=== PATIENT | male | born 1950 | race Caucasian/White ===

== ENCOUNTER → 2021-09-13 15:19 | Outpatient (BNVA) | payer MEDICARE, SELFPAY | PROVIDERS: Family Provider Family Medicine; PCP Family Medicine; Visit Provider Family Medicine | DX: Z00.00 Encounter for general adult medical examination without abnormal findings (principal); Z51.81 Encounter for therapeutic drug level monitoring; Z13.220 Encounter for screening for lipoid disorders; E53.9 Vitamin B deficiency, unspecified; R73.01 Impaired fasting glucose; R39.11 Hesitancy of micturition | CPT/HCPCS: 80053; 80061; 82607; 83036; 84153; 85025 ==

== ENCOUNTER 2021-10-09 08:42 | Day surgery (SDC) | payer MEDICARE, SELFPAY ==
[2021-10-05 12:39] VITALS: BMI 29.1
[2021-10-09 09:17] VITALS: BP 123/77; PULSE 72; RESP 18; TEMP 36.5; O2SAT 95
[2021-10-09] MEDS: sodium chloride 0.9% 1,000 ML 30 ML IV (09:29)
--- NOTE | 2021-10-09 09:46 | P.HP_ITS ---
Same Day Surgery H&P Indication for Procedure/HPI DATE OF PROCEDURE: October 09, 2021 CHIEF COMPLAINT/INDICATIONFOR SURGICAL PROCEDURE: History of colon polyp PREOP DIAGNOSIS: Polyps PLANNED PROCEDURE: Operation Date: 10/09/21 10:15 Proposed Procedures p Colonoscopy 57740,z86.010(Not Applicable) - Bon Pedersen MD Medications/Allergies* Home Medications Medication Instructions Recorded Confirmed Type Lactobacills gasseri-Bifidobac 1 cap PO DAILY 09/28/21 10/05/21 History bifidum,longum 1.5 billion cell capsule ([place] [employer]) ascorbic acid (vitamin C) 500 mg 500 mg PO DAILY 09/28/21 10/05/21 History capsule cholecalciferol (vitamin D3) 125 125 mcg PO DAILY 09/28/21 10/05/21 History mcg (5,000 unit) capsule methylcellulose (laxative) 500 mg 500 mg PO DAILY 09/28/21 10/05/21 History tablet (Fiber Laxative (methylcellulose)) Allergies/Adverse Reactions Allergy/AdvReac Type Severity Reaction Status Date / Time No Known Allergies Allergy Verified 10/09/21 09:25 Current Medications: Generic Name Dose Route Start Last Admin Trade Name Freq PRN Reason Stop Dose Admin Sodium Chloride 1,000 mls @ 30 mls/hr 10/09/21 09:30 10/09/21 09:29 Sodium Chloride 0.9% IV 30 mls/hr .Q24H AUBRIE Administration Pertinent History/Comorbid Conditions* Social History Smoking and tobacco status: never smoked Alcohol intake: never Pertinent Exam Findings alert, oriented x 3, clear to auscultation bilaterally, regular rate & rhythm, operative site marked and procedure specific exam findings Recommendations Surgery/Procedure today Coding Level of Care Code Acute Technical Services Rep for Gilberto Solano
--- NOTE | 2021-10-09 09:56 | P.ANESASSM_ITS ---
Pre-Anesthetic Assessment Height/Weight: Height 1.83 m Weight 97.522 kg Temp Pulse Resp BP Pulse Ox 97.7 F 72 18 123/77 95 10/09/21 09:17 10/09/21 09:17 10/09/21 09:17 10/09/21 09:17 10/09/21 09:17 Preop Diagnosis: Polyps Operation Date: 10/09/21 10:15 Proposed Procedures p Colonoscopy 69275,z86.010(Not Applicable) - Bon Pedersen MD Familial anesthetic complications: None Was Beta Margi taken within 24 hours: N/A Was Clonidine taken within 24 hours: N/A Last intake: Intake Last Liquid Date 10/08/21 Last Liquid Time 23:45 Last Solid Date 10/07/21 Social No alcohol and No tobacco Exam alert, oriented x 3, clear to auscultation bilaterally and regular rate & rhythm Airway Mallampati: Class II Dentition: full Metabolic Pre-DM Anesthetic Plan ASA status: 2 Anesthesia: MAC Risk of > 500 ml blood loss (7ml/kg in children): No Medications/Allergies Home Medications Medication Instructions Recorded Confirmed Last Taken Type Lactobacills gasseri-Bifidobac 1 cap PO DAILY 09/28/21 10/05/21 10/07/21 History bifidum,longum 1.5 billion cell capsule ([employer] DTS) ascorbic acid (vitamin C) 500 mg 500 mg PO DAILY 09/28/21 10/05/21 10/07/21 History capsule cholecalciferol (vitamin D3) 125 125 mcg PO DAILY 09/28/21 10/05/21 10/07/21 History mcg (5,000 unit) capsule methylcellulose (laxative) 500 mg 500 mg PO DAILY 09/28/21 10/05/21 10/07/21 History tablet (Fiber Laxative (methylcellulose)) Allergies Allergy/AdvReac Type Severity Reaction Status Date / Time No Known Allergies Allergy Verified 10/09/21 09:25 Current Medications Generic Name Dose Route Start Last Admin Trade Name Freq PRN Reason Stop Dose Admin Sodium Chloride 1,000 mls @ 30 mls/hr 10/09/21 09:30 10/09/21 09:29 Sodium Chloride 0.9% IV 30 mls/hr .Q24H AUBRIE Administration PFSH Anesthesia Social History (Updated 09/12/21 @ 16:02 by Bakari Keysha) Smoking and tobacco status: never smoked Alcohol intake: never Data Anesthesia Cardiac Studies: No Data to Display
[2021-10-09] MEDS: EPINEPHrine 1 mg/mL INJ XX (11:20)
--- NOTE | 2021-10-09 11:28 | ANE.PACU2 ---
Inpatient post-anesthesia follow up: Airway intact: Yes Vital signs: Temperature 97.7 F Pulse Rate 72 Respiratory Rate 18 Blood Pressure 123/77 Pulse Oximetry 95 Oxygen Delivery Me thod Room Air Oxygen Flow Rate Fraction of Inspir ed Oxygen Hydration adequate: Yes Nausea and vomiting: No Pain level: 1 Mental status: Baseline
[2021-10-09 11:31] VITALS: BP 129/79; PULSE 63; RESP 19; TEMP 36.3; O2SAT 97
[2021-10-09] MEDS: ondansetron 2 mg/ML SDV 2 mL 4 MG IVP (11:44)
[2021-10-09 11:47] VITALS: BP 138/94; PULSE 68; RESP 16; O2SAT 94
== END 2021-10-09 12:09 | disposition home or self-care (01) ==
PROVIDERS: Family Provider Family Medicine; PCP Family Medicine; Visit Provider Internal Medicine
PROC: 0DJD8ZZ Inspection of Lower Intestinal Tract, Via Natural or Artificial Opening Endoscopic (ICD-10-PCS; CPT 45378; principal; 2021-10-09 10:15)
DX: Z86.010 Personal history of colon polyps (principal); D12.3 Benign neoplasm of transverse colon; R73.03 Prediabetes
CPT/HCPCS: 45381; 45385; 88305; J0171; J2405; J2704; J7030

== ENCOUNTER → 2022-01-29 08:17 | Outpatient (BNVA) | payer MEDICARE, SELFPAY | PROVIDERS: Family Provider Family Medicine; PCP Family Medicine; Visit Provider Family Medicine | DX: Z51.81 Encounter for therapeutic drug level monitoring (principal); E11.9 Type 2 diabetes mellitus without complications; E53.8 Deficiency of other specified B group vitamins | CPT/HCPCS: 80053; 80061; 82607; 83036; 85025 ==

== ENCOUNTER 2022-02-22 09:22 | Emergency (ER) | payer MEDICARE, SELFPAY ==
[2022-02-22] VITALS (18 sets, daily range): BP systolic 108–145; BP diastolic 69–92; PULSE 77–87; RESP 14–26; TEMP 36.8; O2SAT 89–95; BMI 29.1
--- NOTE | 2022-02-22 09:39 | ECG_ITS ---
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 Measurements Intervals [place] Rate: 81 P: 51 CO: 170 QRS: 51 QRSD: 99 T: 62 QT: 377 QTc: 439 Interpretive Statements SINUS RHYTHM No previous ECG available for comparison Electronically Signed On 02-22-2022 19:00:56 AUDIT SENIOR ASSOCIATE by Angelina Figueroa M.D. [id number] f
--- NOTE | 2022-02-22 10:02 | XRR_ITS ---
PROCEDURE INFORMATION: Exam: XR Chest Exam date and time: 02/22/2022 10:24 AM Age: 71 years old Clinical indication: Pain; Angina pectoris; Additional info: Chest pain TECHNIQUE: Imaging protocol: Radiologic exam of the chest. Views: 1 view. COMPARISON: No relevant prior studies available. FINDINGS: Lungs: Unremarkable. No consolidation. Pleural spaces: Unremarkable. No pleural effusion. No pneumothorax. Heart/Mediastinum: Unremarkable. No cardiomegaly. Bones/joints: Unremarkable. XR/XR chest 1V portable [id number] IMPRESSION: No acute findings.
[2022-02-22] MEDS: aspirin 81 mg Chew Tablet 324 MG PO (10:14)
--- NOTE | 2022-02-22 10:23 | PC.NURSE ---
PT IS ON CONTINUOUS SPO2, NIBP, AND CM.
[2022-02-22 10:34] LABS: Basophils % 0.5 %; Eosinophils # 0.1 10^3/uL (0.0-0.8); Eosinophils % 1.3 %; Hematocrit 43.4 % (42.0-52.0); Hemoglobin 14.8 g/dL (11.7-16.6); Lymphocytes # 1.2 10^3/uL (0.8-4.8); Lymphocytes % 13.8 %; Mean Corpuscular HGB Conc 34.1 g/dL (30.0-36.0); Mean Corpuscular Hemoglobin 31.4 pg (28.0-34.0); Mean Corpuscular Volume 92.1 fl (80-94); Mean Platelet Volume 9.9 fL (7.4-10.4); Monocytes # 0.8 10^3/uL (0.2-0.9); Neutrophils # 6.53 10^3/uL (1.8-7.7); Neutrophils % 75.1 %; Nucleated Red Blood Cells % 0 %; Platelet Count 169 10^3/cmm (130-400); Red Blood Count 4.71 10^6/uL (4.1-5.3); Red Cell Distribution Width 12.8 % (12.1-15.1); White Blood Count 8.7 10^3/uL (4.0-10.0)
--- NOTE | 2022-02-22 10:39 | W.ED.CHESTPA ---
HPI - Chest Pain General: Chief Complaint: Chest Pain Stated Complaint: chest pain Time Seen by Provider: 02/22/22 09:52 Source: patient Mode of arrival: ambulatory History of Present Illness: 71-year-old male presents to the emergency room with complaint of chest discomfort. He is awake alert and oriented he states chest pain is worse when he moves around. He gave the example of when he leaned over out of the bed to reach for his phone also is worse with palpation and with deep inspiration. He denies any recent fever sweats or chills he has no known history of coronary artery disease and he does not smoke. He has a history of type 2 diabetes mellitus but is treated with diet control and his most recent hemoglobin had actually been decreasing to less than 5 without any medications. He has not had other recent episodes of chest discomfort. MD complaint: chest pain Onset (ago): hour(s) Timing of current episode: episodic Pain location: right chest Pain radiation: none Severity: moderate Quality: sharp Exacerbating factors: palpation and movement Associated symptoms: Deny abdominal pain, diaphoresis, dyspnea, fever(s), leg edema, nausea, palpitations, sense of impending doom, syncope or vomiting Treatment prior to arrival: none Review of Systems Const: Reports: chills; Denies: fever(s), fatigue, malaise or diaphoresis ENMT: Denies: throat pain, ear or mastoid pain, nasal discharge or nasal congestion Card: Reports: chest pain; Denies: palpitations, irregular heart rhythm, edema, swelling of feet/ankles or syncope Resp: Denies: dyspnea GI: Denies: abdominal pain, nausea or vomiting : Denies: flank pain, dysuria, urinary frequency or urinary urgency Skin/Breast: Denies: rash or pruritus PFS ED PFSH: Medical History Neuropathy Vitamin B12 deficiency Social History Smoking and tobacco status: never smoked Alcohol intake: never Physical Exam Const: GENERAL APPEARANCE: cooperative and comfortable ORIENTATION/CONSCIOUSNESS: Yes awake, Yes oriented to person, Yes oriented to place and Yes oriented to time HENMT: COMMON NORMALS: normocephalic, atraumatic and hearing grossly normal bilaterally HEAD & SCALP: normocephalic and atraumatic Resp: COMMON NORMALS: normal respiratory effort, No retractions, No use of accessory muscles and clear to auscultation bilaterally AUSCULTATION: clear to auscultation bilaterally Cardio: COMMON NORMALS: regular rate, regular rhythm and No murmurs present (Cardio) RATE: regular rate RHYTHM: regular rhythm GI: COMMON NORMALS: Soft to palpation and No hepatosplenomegaly present AUSCULTATION: Yes normoactive bowel sounds PALPATION: Yes Soft to palpation, No Tenderness to palpation present (GI), No Guarding due to palpation present (GI) and Yes No hepatosplenomegaly present Extremity: COMMON NORMALS: normal to inspection, capillary refill normal, no clubbing, cyanosis or edema, no calf tenderness and no pedal edema Neuro: SENSORIUM/ORIENTATION: Yes oriented to person, Yes oriented to place and Yes oriented to time Skin: COMMON NORMALS: no rashes or lesions noted GENERAL SKIN EXAM: no rashes or lesions noted Course Vital Signs: Vital signs: Vital Signs Temperature 98.3 F 02/22/22 09:31 Pulse Rate 82 02/22/22 14:45 Respiratory Rate 23 H 02/22/22 14:30 Blood Pressure 145/92 02/22/22 15:30 Pulse Oximetry 91 02/22/22 15:15 Oxygen Delivery Me thod 02/22/22 09:31 MDM - Chest Pain Medical Decision Making While waiting on second troponin noted the patient's oxygen saturations are trending down he was initially 95% on room air when he arrived now he is satting around 89 to 9091% on room air he is very slightly tachypneic but he has not been tachycardic. We will do a CTA of his chest to rule out PE CTA chest normal no PE no filtrates no pneumonia. Atypical chest pain. We will set up for an outpatient Lexiscan sestamibi stress test blood pressure mildly elevated we will also add isosorbide mononitrate if symptoms worsen or change recheck Medical Records I reviewed the patient's medical records. Lab Data I reviewed the patient's lab results. 02/22/22 10:20 02/22/22 10:20 Radiology Impressions Chest X-Ray 02/22/22 10:02 IMPRESSION: No acute findings. Chest CTA 02/22/22 13:04 IMPRESSION: 1. No evidence of pulmonary embolus. 2. Both lungs are well aerated. No acute pulmonary infiltrates. 3. No acute chest findings. Laboratory Results WBC 8.7 10^3/uL (4.0-10.0) 02/22/22 10:20 RBC 4.71 10^6/uL (4.1-5.3) 02/22/22 10:20 Hgb 14.8 g/dL (11.7-16.6) 02/22/22 10:20 Hct 43.4 % (42.0-52.0) 02/22/22 10:20 MCV 92.1 fl (80-94) 02/22/22 10:20 MCH 31.4 pg (28.0-34.0) 02/22/22 10:20 MCHC 34.1 g/dL (30.0-36.0) 02/22/22 10:20 RDW 12.8 % (12.1-15.1) 02/22/22 10:20 Plt Count 169 10^3/cmm (130-400) 02/22/22 10:20 MPV 9.9 fL (7.4-10.4) 02/22/22 10:20 Neut % (Auto) 75.1 % 02/22/22 10:20 Lymph % (Auto) 13.8 % 02/22/22 10:20 [place] % (Auto) 9.0 % 02/22/22 10:20 Eos % (Auto) 1.3 % 02/22/22 10:20 Baso % (Auto) 0.5 % 02/22/22 10:20 Neut # (Auto) 6.53 10^3/uL (1.8-7.7) 02/22/22 10:20 Lymph # (Auto) 1.2 10^3/uL (0.8-4.8) 02/22/22 10:20 [place] # (Auto) 0.8 10^3/uL (0.2-0.9) 02/22/22 10:20 Eos # (Auto) 0.1 10^3/uL (0.0-0.8) 02/22/22 10:20 Baso # (Auto) 0.0 10^3/uL (0.0-0.1) 02/22/22 10:20 Nucleated RBC % (auto) 0 % 02/22/22 10:20 Nucleated RBCs # 0.0 /100WBC 02/22/22 10:20 Sodium 139 mmol/L (136-145) 02/22/22 10:20 Potassium 4.0 mmol/L (3.5-5.1) 02/22/22 10:20 Chloride 104 mmol/L (98-107) 02/22/22 10:20 Carbon Dioxide 24 mmol/L (22-29) 02/22/22 10:20 Anion Gap 15.0 (5-19) 02/22/22 10:20 BUN 12 mg/dL (8-23) 02/22/22 10:20 Creatinine 0.8 mg/dL (0.7-1.2) 02/22/22 10:20 GFR Calculation 95.8 mL/min (90-130) 02/22/22 10:20 Glucose 100 mg/dL (65-115) 02/22/22 10:20 Calculated Osmolality 288 mOsm/kg (285-295) 02/22/22 10:20 Calcium 8.8 mg/dL (8.5-10.5) 02/22/22 10:20 Total Bilirubin 0.6 mg/dL (0.15-1.2) 02/22/22 10:20 AST 21 U/L (0-40) 02/22/22 10:20 ALT 16 U/L (0-41) 02/22/22 10:20 Alkaline Phosphatase 60 U/L (40-130) 02/22/22 10:20 Troponin T Baseline 15 ng/L (0-15) 02/22/22 10:20 Troponin T 120 Minute 12.92 ng/L (0-15) 02/22/22 12:40 Delta Troponin T -2.08 ABS# (0-10) L 02/22/22 12:40 Total Protein 7.0 g/dL (6.6-8.7) 02/22/22 10:20 Albumin 4.3 g/dL (3.5-5.2) 02/22/22 10:20 Globulin 2.7 g/dL (1.3-4.6) 02/22/22 10:20 Discharge Plan Discharge Patient Disposition: Home Clinical Impression: Atypical chest pain Condition: Stable Prescriptions: New aspirin 81 mg tablet,delayed release (DR/EC) 81 mg PO DAILY Qty: 30 0RF isosorbide mononitrate 30 mg tablet extended release 24 hr 30 mg PO DAILY Qty: 30 0RF No Action ascorbic acid (vitamin C) 500 mg capsule 500 mg PO DAILY cholecalciferol (vitamin D3) 125 mcg (5,000 unit) capsule 125 mcg PO DAILY Fiber Laxative (methylcellulo) 500 mg tablet 500 mg PO DAILY TaxiBeat 1.5 billion cell capsule 1 cap PO DAILY cyanocobalamin (vitamin B-12) [Vitamin B-12] 1,000 mcg tablet 1,000 mcg PO DAILY Qty: 30 6RF Discharge Orders: Discharge ED (Routine); Ordered 02/22/22 Ordered By: Wilfredo Quach Referrals: Chris Velarde MD [Primary Care Provider] - Discharge Diet: Usual diet Discharge Activity: Limit activity as instructed Activity Restrictions/Additional Instructions: You were seen today for chest pain your chest x-ray and CTA of the chest did not show any significant abnormalities cardiac enzymes and EKG did not show any significant changes no evidence of ongoing heart attack at the time you are seen. We will set you up for an outpatient Lexiscan sestamibi stress test. Avoid any exertional activities. You are given prescription to start isosorbide mononitrate 30 mg once daily should also take baby aspirin daily follow-up with Dr. Velarde after the stress test Coding Level of Care Code ED Farm Planner for Gilberto Solano
[2022-02-22 10:55] LABS: Troponin(5th) Baseline 15 ng/L (0-15)
[2022-02-22 10:57] LABS: Alanine Aminotransferase 16 U/L (0-41); Albumin Level 4.3 g/dL (3.5-5.2); Alkaline Phosphatase 60 U/L (40-130); Aspartate Amino Transferase 21 U/L (0-40); Blood Urea Nitrogen 12 mg/dL (8-23); Calcium 8.8 mg/dL (8.5-10.5); Carbon Dioxide 24 mmol/L (22-29); Chloride 104 mmol/L (98-107); Creatinine Clr Calc Pharmacy 105.4754; Globulin 2.7 g/dL (1.3-4.6); Glomerular Filtration Rate 95.8 mL/min (90-130); Glucose 100 mg/dL (65-115); Osmolality Calculated 288 mOsm/kg (285-295); Sodium 139 mmol/L (136-145); Total Bilirubin 0.6 mg/dL (0.15-1.2)
--- NOTE | 2022-02-22 12:03 | ECG_ITS ---
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 Measurements Intervals [place] Rate: 78 P: 53 [place]: 178 QRS: 41 QRSD: 102 T: 50 QT: 385 QTc: 440 Interpretive Statements SINUS RHYTHM WITH SINUS ARRHYTHMIA NONSPECIFIC T-WAVE ABNORMALITY Compared to ECG 02/22/2022 09:39:32 T-wave abnormality now present Electronically Signed On 02-22-2022 19:06:19 CUSTOMER COUNTER REPRESENTATIVE by Angelina Figueroa M.D. [id number]
--- NOTE | 2022-02-22 13:04 | CT_ITS ---
WS: [id number] CTA OF THE CHEST WITH PULMONARY EMBOLISM PROTOCOL TECHNIQUE: High-resolution contrast enhanced CTA of the chest with coronal and sagittal reformatted i mages with pulmonary embolism protocol. MIP images are also reviewed. CLINICAL INFORMATION: tachypnea/hypoxia COMPARISON: None. DLP: 398.[address] scans at [facility] use at least one of these dose optimization techniques: automated e xposure control; mA and/or kV adjustment per patient size (includes targeted exams where dose is matc hed to clinical indication); or iterative reconstruction. FINDINGS: Proximal main pulmonary arteries are normal. Normal segmental and subsegmental pulmonary arteries. No evidence of pulmonary embolus. Normal caliber thoracic aorta. No mediastinal or hilar lymphadenopath y. Both lungs are well aerated. No acute pulmonary infiltrates. No focal pneumonia or pleural fluid. Small esophageal hiatal hernia. Adrenal glands are normal. Moderate thoracic kyphosis. Ankylosis thor acic spine. CT/CT angio chest PE protcl [id number] IMPRESSION: 1. No evidence of pulmonary embolus. 2. Both lungs are well aerated. No acute pulmonary infiltrates. 3. No acute chest findings.
[2022-02-22 13:16] LABS: Troponin 5 2HR 12.92 ng/L (0-15)
[2022-02-22] MEDS: iohexol 350 mg/mL 500 mL Btl (per mL) IV (13:21)
[2022-02-22 13:47] LABS: Troponin 5 2HR Delta -2.08 ABS# (0-10)
--- NOTE | 2022-02-23 13:18 | DCPLANNER ---
Addendum entered by Keren Holm 06/05/22 17:57: This appointment was cancelled Addendum entered by Keren Holm 03/22/22 15:39: Patient has a stress test scheduled for April at 8:15. Centralized scheduling will call patient with appointment information. Original Note: horse show manager had message to schedule an outpatient stress test for patient. horse show manager faxed signed order to centralized scheduling, who will call patient with appointment information. horse show manager faxed patients primary care physician notification that a stress test was ordered by a ER physician.
== END 2022-02-22 15:45 | disposition home or self-care (01) ==
PROVIDERS: Emergency Provider Family Medicine; PCP Family Medicine
DX: R07.89 Other chest pain (principal)
CPT/HCPCS: 71045; 71275; 80053; 84484; 85025; 93005; 99285; Q9967

== ENCOUNTER 2022-05-30 12:44 | Outpatient (CLI) | payer MEDICARE, SELFPAY ==
--- NOTE | 2022-05-30 13:00 | MR_ITS ---
WS: [id number] MRI BRAIN WITH AND WITHOUT CONTRAST HISTORY: Seizure COMPARISON: None available. TECHNIQUE: Multiplanar imaging performed through the brain with MultiHance 20 ml's IV. No acute infarcts are seen. Stoll-white matter differentiation is well preserved. Moderate scattered T 2 and FLAIR signal hyperintensities in the white matter from small vessel ischemic disease. No prior large territory infarct. Normal appearance of the hippocampal formations. No asymmetry. No susceptibility artifacts or prior lacunar infarcts. Ventricles and extra-axial spaces are normal. Clivus and pituitary gland are normal. Visualized posterior fossa and brainstem are also normal. Postcontrast images are negative for masses or vascular malformations. Small filling defects in the LEFT transverse and sigmoid sinus are pacchionian granulations. Paranasal sinuses: Well aerated with no significant disease. Mastoid air cells: Normal. Small cyst adjacent to the RIGHT mandibular condyle and TMJ joint is proba foster related to degenerative changes at the TM joint. Cyst measures 8.3 mm and there is a small tail e xtending towards the TM joint. Calvarium and scalp: Normal. MR/MR head wo/w con [id number] IMPRESSION: 1. No acute infarct or enhancing mass. 2. Symmetric appearance of the hippocampal formations. 3. Moderate small vessel ischemic type changes in the white matter. 4. Small cyst associated with the RIGHT TM joint may be a small synovial cyst or ganglion.
[2022-05-30] MEDS: gadobenate dimeglumine 20 mL vial IV (13:46)
== END 2022-05-30 12:45 | disposition home or self-care (01) ==
PROVIDERS: PCP Family Medicine; Visit Provider Family Medicine
DX: R56.9 Unspecified convulsions (principal); I67.82 Cerebral ischemia
CPT/HCPCS: 70553; A9577

== ENCOUNTER 2022-09-30 00:42 | Emergency (ER) | payer MEDICARE, SELFPAY ==
[2022-09-30 00:49] VITALS: BP 146/71; PULSE 94; RESP 22; TEMP 36.6; O2SAT 93; BMI 26.4
--- NOTE | 2022-09-30 01:11 | XRR_ITS ---
PROCEDURE INFORMATION: Exam: XR Chest Exam date and time: 09/30/2022 1:17 AM Age: 72 years old Clinical indication: Patient HX: Arrival via EMS for seizure activity; Additional info: Roselia TECHNIQUE: Imaging protocol: Radiologic exam of the chest. Views: 1 view. COMPARISON: CR XR chest 1V portable [id number] 02/22/2022 10:24 AM FINDINGS: Lungs: Mild COPD. No consolidation. Pleural spaces: Unremarkable. No pleural effusion. No pneumothorax. Heart/Mediastinum: Unremarkable. No cardiomegaly. Bones/joints: Unremarkable. XR/XR chest 1V portable [id number] IMPRESSION: No acute findings.
--- NOTE | 2022-09-30 01:11 | CTR_ITS ---
PROCEDURE INFORMATION: Exam: CT Head Without Contrast Exam date and time: 09/30/2022 1:22 AM Age: 72 years old Clinical indication: Condition or disease; Convulsions or seizures; Patient HX: Arrival via EMS for seizure activity; Additional info: Roselia TECHNIQUE: Imaging protocol: Computed tomography of the head without contrast. Radiation optimization: All CT scans at this facility use at least one of these dose optimization techniques: automated exposure control; mA and/or kV adjustment per patient size (includes targeted exams where dose is matched to clinical indication); or iterative reconstruction. REPORTING DATA: Count of CT and Cardiac NM exams in prior 12 months: This patient has received [address] and 0 known cardiac nuclear medicine studies in the 12 months prior to the current study. COMPARISON: MR head wo/w con [id number] 05/30/2022 1:08 PM RADIATION DOSE METRICS: Total DLP (mGy-cm): 1293.92 FINDINGS: Brain: No focal hemorrhage or midline shift is identified. The ventricles and parenchyma show mild atrophy and chronic bicerebral white matter ischemic change. Cerebral ventricles: No ventriculomegaly or evidence of hydrocephalus. Paranasal sinuses: No evidence of acute sinusitis. Mastoid air cells: Visualized mastoid air cells are well aerated. Bones/joints: No displaced skull fracture is noted. Soft tissues: Unremarkable. Vasculature: Diffuse vascular calcifications are present. CT/CT head wo con* [id number] IMPRESSION: 1. No acute intracranial abnormality. 2. Mild age-related changes.
--- NOTE | 2022-09-30 01:12 | ECG_ITS ---
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 Measurements Intervals [place] Rate: 86 P: 34 [place]: 176 QRS: 22 QRSD: 100 T: 38 QT: 371 QTc: 445 Interpretive Statements SINUS RHYTHM Compared to ECG 02/22/2022 13:01:19 Sinus arrhythmia no longer present T-wave abnormality no longer present Electronically Signed On 09-30-2022 9:43:34 CDT by Garfield Ledesma M.D. [id number]
--- NOTE | 2022-09-30 01:16 | ED_ITS ---
HPI - Seizure General: Chief Complaint: Seizure Stated Complaint: AMS Time Seen by Provider: 09/30/22 00:51 History of Present Illness: HPI Narrative: 72-year-old gentleman with a history of 1 prior seizure episode last December. He presents tonight after going to sleep sometime around 9 PM. His came through around 1230, and noticed him in a strange position in his chair. He would not respond to her at that point. EMS was called, and the patient r emained unconscious until after their arrival. He seemed to be breathing. He had a pulse. He was not shaking. On sticking the patient for an IV, he awoke, and was combative. He had bitten his tongue, and urinated in his pants. He was confused upon awakening, which seem to resolve rather quickly. He notes the last thing he remembers is getting sleepy around 9 PM. He was not having chest discomfort. He had felt well earlier in the evening. Associated symptoms: Reports confusion (Resolved); Deny chest pain or fever(s) Review of Systems Const: Denies: fever(s) Eyes: Denies: change in vision ENMT: Denies: throat pain Card: Denies: chest pain or palpitations Resp: Denies: dyspnea, productive cough or non-productive cough GI: Denies: abdominal pain, nausea or vomiting Skin/Breast: Denies: rash Neuro: Reports: confusion (Resolved); Denies: headache(s), numbness in extremities, weakness in extremities, Slurred speech present, difficulty communicating thoughts or seizure-like activity [facility] ED PFSH: Medical History Neuropathy Muscle/nerve biopsy done Vitamin B12 deficiency Surgical History History of eye surgery He had a vitrectomy done on the left eye - Dr Spann Social History Smoking and tobacco status: never smoked Alcohol intake: never Physical Exam Const: COMMON NORMALS: no acute distress GENERAL APPEARANCE: cooperative; not ill appearing and not frail appearing HENMT: COMMON NORMALS: normocephalic, atraumatic and Normal external nose present HEAD & SCALP: normocephalic and atraumatic FACE & SINUS: normal facial exam and face symmetric NOSE: Normal external nose present MOUTH: tongue abnormal ecchymotic Eye: COMMON NORMALS: Equal, round and reactive pupils present and EOMs intact bilaterally CONJUNCTIVA: Yes conjunctival abnormal positive right subcon junctival hemorrhage PUPIL: Yes Equal, round and reactive pupils present Neck/C-Spine: GENERAL: Yes trachea midline Chest: CHEST: Yes Symmetrical chest wall rise Resp: COMMON NORMALS: normal respiratory effort, No retractions, No use of accessory muscles and clear to auscultation bilaterally AUSCULTATION: clear to auscultation bilaterally Cardio: COMMON NORMALS: regular rate and regular rhythm RATE: regular rate RHYTHM: regular rhythm GI: COMMON NORMALS: Normal to inspection, nondistended, normoactive bowel sounds present Extremity: COMMON NORMALS: no pedal edema Neuro: MASON COMA SCALE: document GCS findings Mason coma scale eye opening: Spontaneous [place] coma scale verbal response: Orientated Mason coma scale motor response: Obey commands Paterson coma scale total score: 15 SENSO RY EXAM: Yes extremities (intact) Psych: COMMON NORMALS: speech normal SPEECH: Yes normal speech Skin: COMMON NORMALS: no rashes or lesions noted GENERAL SKIN EXAM: no rashes or lesions noted Course Vital Signs: Vital signs: Vital Signs Temperature 97.9 F 09/30/22 00:49 Pulse Rate 71 09/30/22 02:30 Respiratory Rate 18 09/30/22 02:00 Blood Pressure 133/79 09/30/22 04:49 Pulse Oximetry 96 09/30/22 04:49 Oxygen Delivery Me thod Nasal Cannula 09/30/22 02:30 Oxygen Flow Rate 4 09/30/22 00:49 MDM - Seizure MDM Narrative Medical decision making narrative: 72-year-old male with an unknown duration time of unresponsiveness at home. He seems to be recovered and at baseline now. He bit his tongue, and lost control of his bladder, and had a brief postictal state. These are all consistent with seizure. This would be his second episode, as he had a similar episode last December. White blood cell count of 10. Bicarbonate of 18. CBC and BMP are otherwise not remarkable. CK is elevated mildly consistent with seizure. Urinalysis shows hematuria without infection. Chest x-ray is negative. Head CT is negative. EKG is completely normal. There is a normal sinus rhythm with a rate of 67, normal axis, normal intervals, no acute ST changes. His delta troponin is minimally elevated. He never had any chest pain. As the patient is at baseline, he will be allowed discharge. Follow-up with his PCP and neurology. Arrhythmia would be considered in the differential as well, either related to ischemia or not. Lab Data 09/30/22 00:31 09/30/22 00:31 Labs: Radiology Impressions Chest X-Ray 09/30/22 01:11 IMPRESSION: No acute findings. Head CT 09/30/22 01:11 IMPRESSION: 1. No acute intracranial abnormality. 2. Mild age-related changes. Laboratory Results WBC 10.1 10^3/uL (4.0-10.0) H 09/30/22 00:31 RBC 4.65 10^6/uL (4.1-5.3) 09/30/22 00:31 Hgb 14.3 g/dL (11.7-16.6) 09/30/22 00:31 Hct 43.8 % (42.0-52.0) 09/30/22 00:31 MCV 94.2 fl (80-94) H 09/30/22 00:31 MCH 30.8 pg (28.0-34.0) 09/30/22 00: MCHC 32.6 g/dL (30.0-36.0) 09/30/22 00:31 RDW 13.4 % (12.1-15.1) 09/30/22 00:31 Plt Count 182 10^3/cmm (130-400) 09/30/22 00: MPV 9.5 fL (7.4-10.4) 09/30/22 00:31 Neut % (Auto) 26.0 % 09/30/22 00:31 Lymph % (Auto) 65.0 % 09/30/22 00:31 [place] % (Auto) 6.3 % 09/30/22 00:31 Eos % (Auto) 1.8 % 09/30/22 00:31 Baso % (Auto) 0.7 % 09/30/22 00:31 Neut # (Auto) 2.62 10^3/uL (1.8-7.7) 09/30/22 00:31 Lymph # (Auto) 6.6 10^3/uL (0.8-4.8) H 09/30/22 00:31 [place] # (Auto) 0.6 10^3/uL (0.2-0.9) 09/30/22 00:31 Eos # (Auto) 0.2 10^3/uL (0.0-0.8) 09/30/22 00:31 Baso # (Auto) 0.1 10^3/uL (0.0-0.1) 09/30/22 00:31 Nucleated RBC % (auto) 0 % 09/30/22 00:31 Nucleated RBCs # 0.0 /100WBC 09/30/22 00:31 Sodium 138 mmol/L (136-145) 09/30/22 00:31 Potassium 4.1 mmol/L (3.5-5.1) 09/30/22 00:31 Chloride 103 mmol/L (98-107) 09/30/22 00:31 Carbon Dioxide 18 mmol/L (22-29) L 09/30/22 00:31 Anion Gap 21.1 (5-19) H 09/30/22 00:31 BUN 15 mg/dL (8-23) 09/30/22 00:31 Creatinine 1.1 mg/dL (0.7-1.2) 09/30/22 00:31 GFR Calculation 66.2 mL/min (90-130) L 09/30/22 00:31 Glucose 96 mg/dL (65-115) 09/30/22 00:31 Calculated Osmolality 287 mOsm/kg (285-295) 09/30/22 00:31 Calcium 8.6 mg/dL (8.5-10.5) 09/30/22 00:31 Phosphorus 3.5 mg/dL (2.5-4.5) 09/30/22 00:31 Magnesium 2.2 mg/dL (1.7-2.3) 09/30/22 00:31 Total Bilirubin 0.4 mg/dL (0.15-1.2) 09/30/22 00:31 AST 23 U/L (0-40) 09/30/22 00:31 ALT 18 U/L (0-41) 09/30/22 00:31 Alkaline Phosphatase 65 U/L (40-130) 09/30/22 00:31 Creatine Kinase 328 U/L (39-308) H* 09/30/22 00:31 Troponin T Baseline 15 ng/L (0-15) 09/30/22 00:31 Troponin T 120 Minute 26.77 ng/L (0-15) H 09/30/22 02:05 Delta Troponin T 11.77 ABS# (0-10) H* 09/30/22 02:05 Total Protein 6.8 g/dL (6.6-8.7) 09/30/22 00:31 Albumin 4.3 g/dL (3.5-5.2) 09/30/22 00:31 Globulin 2.5 g/dL (1.3-4.6) 09/30/22 00:31 Urine Color Yellow (Yellow) 09/30/22 01:51 Urine Appearance Clear (CLEAR) 09/30/22 01:51 Urine pH 5 (5-7) 09/30/22 01:51 Ur Specific [place] 1.030 (1.005-1.030) 09/30/22 01:51 Urine Protein 1+ (Negative) H 09/30/22 01:51 Urine Glucose (UA) Norm (Normal) 09/30/22 01:51 Urine Ketones 1+ (Negative) H 09/30/22 01:51 Urine Blood 3+ (Negative) H 09/30/22 01:51 Urine Nitrate Negative (Negative) 09/30/22 01:51 Urine Bilirubin Neg (Negative) 09/30/22 01:51 Urine Urobilinogen 1 mg/dL (Negative) H 09/30/22 01:51 Ur Leukocyte Esterase Trace (Negative) H 09/30/22 01:51 Urine RBC >100 /hpf (0-2) H 09/30/22 01:51 Urine WBC 0-4 /hpf (0-5) H 09/30/22 01:51 Ur Squamous Epith Cells 0-4 /hpf (0-5) H 09/30/22 01:51 Amorphous Sediment Not Reportable 09/30/22 01:51 Urine Bacteria Trace /hpf (NONE) 09/30/22 01:51 Hyaline Casts 0-4 /lpf H 09/30/22 01:51 Discharge Plan Discharge Patient Disposition: Home Clinical Impression: Generalized seizure Condition: Stable Prescriptions: No Action ascorbic acid (vitamin C) 500 mg capsule 500 mg PO DAILY cholecalciferol (vitamin D3) 125 mcg (5,000 unit) capsule 125 mcg PO DAILY Fiber Laxative (methylcellulo) 500 mg tablet 500 mg PO DAILY GoodGuide 1.5 billion cell capsule 1 cap PO DAILY cyanocobalamin (vitamin B-12) [Vitamin B-12] 1,000 mcg tablet 1,000 mcg PO DAILY Qty: 30 6RF aspirin 81 mg tablet,delayed release (DR/EC) 81 mg PO DAILY Qty: 30 0RF Discharge Orders: Discharge ED (Routine); Ordered 09/30/22 Ordered By: Patricio Hernandez Referrals: Chris Velarde MD [Primary Care Provider] - 1-3 days Patient Instructions: Opioid Safety, Pain Management Activity Restrictions/Additional Instructions: Return for repeated episodes of seizure or passing out, development of chest discomfort, any other concerning symptoms. See your doctor early this week. They may wish to perform more tests as an outpatient. Coding Level of Care Code ED Motion Picture Cameraman for Gilberto Solano
[2022-09-30 01:17] LABS: Basophils # 0.1 10^3/uL (0.0-0.1); Basophils % 0.7 %; Eosinophils # 0.2 10^3/uL (0.0-0.8); Eosinophils % 1.8 %; Hematocrit 43.8 % (42.0-52.0); Hemoglobin 14.3 g/dL (11.7-16.6); Lymphocytes # 6.6 10^3/uL (0.8-4.8); Mean Corpuscular HGB Conc 32.6 g/dL (30.0-36.0); Mean Corpuscular Hemoglobin 30.8 pg (28.0-34.0); Mean Corpuscular Volume 94.2 fl (80-94); Mean Platelet Volume 9.5 fL (7.4-10.4); Monocytes # 0.6 10^3/uL (0.2-0.9); Monocytes % 6.3 %; Neutrophils # 2.62 10^3/uL (1.8-7.7); Nucleated Red Blood Cells % 0 %; Platelet Count 182 10^3/cmm (130-400); Red Blood Count 4.65 10^6/uL (4.1-5.3); Red Cell Distribution Width 13.4 % (12.1-15.1); White Blood Count 10.1 10^3/uL (4.0-10.0)
[2022-09-30 01:24] VITALS: BP 118/68; PULSE 94; RESP 27; O2SAT 97
[2022-09-30 01:39] LABS: Troponin(5th) Baseline 15 ng/L (0-15)
[2022-09-30 01:40] LABS: Alanine Aminotransferase 18 U/L (0-41); Albumin Level 4.3 g/dL (3.5-5.2); Alkaline Phosphatase 65 U/L (40-130); Anion Gap 21.1 (5-19); Aspartate Amino Transferase 23 U/L (0-40); Blood Urea Nitrogen 15 mg/dL (8-23); Calcium 8.6 mg/dL (8.5-10.5); Carbon Dioxide 18 mmol/L (22-29); Chloride 103 mmol/L (98-107); Creatinine Clr Calc Pharmacy 74.4432; Globulin 2.5 g/dL (1.3-4.6); Glomerular Filtration Rate 66.2 mL/min (90-130); Glucose 96 mg/dL (65-115); Magnesium 2.2 mg/dL (1.7-2.3); Osmolality Calculated 287 mOsm/kg (285-295); Phosphorus 3.5 mg/dL (2.5-4.5); Potassium 4.1 mmol/L (3.5-5.1); Sodium 138 mmol/L (136-145); Total Bilirubin 0.4 mg/dL (0.15-1.2); Total Protein 6.8 g/dL (6.6-8.7)
[2022-09-30 01:41] LABS: Slide Review Slide Review Perform
[2022-09-30] MEDS: sodium chloride 0.9% 1,000 ML 999 ML IV (01:41)
[2022-09-30 01:47] LABS: Creatine Phosphokinase 328 U/L (39-308)
[2022-09-30 02:00] VITALS: BP 131/80; PULSE 78; RESP 18; O2SAT 100
[2022-09-30 02:13] LABS: Protein Urine 1+ (Negative); Urine Appearance Clear (CLEAR); Urine Color Yellow (Yellow); pH Urine 5 (5-7)
[2022-09-30 02:14] LABS: Add Urine Microscopic? YES; Bilirubin Urine Neg (Negative); Blood Urine 3+ (Negative); Glucose Urine UA Norm (Normal); Ketones Urine 1+ (Negative); Leukocyte Esterase Urine Trace (Negative); Nitrate Urine Negative (Negative); Urobilinogen Urine 1 mg/dL (Negative)
[2022-09-30 02:16] LABS: Bacteria Urine TRACE /hpf; RBC Urine >100 /hpf (0-2); Squamous Epithelial Cell Urine 0-4 /hpf (0-5); WBC Urine 0-4 /hpf (0-5)
[2022-09-30 02:17] LABS: Add Urine Culture? Yes; Hyaline Casts Urine 0-4 /lpf
[2022-09-30 02:30] VITALS: BP 153/85; PULSE 71; O2SAT 97
[2022-09-30 02:30] LABS: Troponin 5 2HR 26.77 ng/L (0-15)
[2022-09-30 02:42] LABS: Troponin 5 2HR Delta 11.77 ABS# (0-10)
--- NOTE | 2022-09-30 03:18 | ECG_ITS ---
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 Measurements Intervals [place] Rate: 67 P: 39 HI: 187 QRS: 22 QRSD: 101 T: 38 QT: 409 QTc: 435 Interpretive Statements SINUS RHYTHM Compared to ECG 09/30/2022 01:34:05 No significant changes Electronically Signed On 09-30-2022 9:48:07 CDT by Garfield Ledesma M.D. [id number]
[2022-09-30 04:49] VITALS: BP 133/79; O2SAT 96
--- NOTE | 2022-10-01 09:44 | DCPLANNER ---
Addendum entered by Keren Holm 10/26/22 10:44: Patient had a follow up appointment scheduled with neurology - patient did attend appointment Addendum entered by Keren Holm 10/16/22 14:33: Patient has a follow up appointment scheduled for Wednesday, October 19, 2022 at 8:[address] Lopez at neurology. Original Note: unit manager had message to schedule a follow up appointment for patient with neurology. unit manager sent patients information to the front office staff at neurology. Patients information will be printed and reviewed. Clinic will call patient with appointment information.
== END 2022-09-30 04:10 | disposition home or self-care (01) ==
PROVIDERS: Emergency Provider Emergency Medicine; PCP Family Medicine
DX: G40.409 Other generalized epilepsy and epileptic syndromes, not intractable, without status epilepticus (principal)
CPT/HCPCS: 36415; 70450; 71045; 80053; 81001; 82550; 83735; 84100; 84484; 85025; 87077; 87086; 87186; 93005; 96360; 96361; 99285; J7030

== ENCOUNTER → 2022-10-18 07:50 | Outpatient (BNVA) | payer MEDICARE, SELFPAY | PROVIDERS: PCP Family Medicine; Referring Provider Emergency Medicine; Visit Provider Specialist | DX: R56.9 Unspecified convulsions; G47.10 Hypersomnia, unspecified; K21.9 Gastro-esophageal reflux disease without esophagitis | CPT/HCPCS: 99205 ==

== ENCOUNTER → 2023-01-16 08:14 | Outpatient (BNVA) | payer MEDICARE, SELFPAY | PROVIDERS: PCP Family Medicine; Visit Provider Specialist | DX: G40.309 Generalized idiopathic epilepsy and epileptic syndromes, not intractable, without status epilepticus (principal); G47.10 Hypersomnia, unspecified; H54.62 Unqualified visual loss, left eye, normal vision right eye | CPT/HCPCS: 99213 ==

== ENCOUNTER → 2023-01-29 08:21 | Outpatient (BNVA) | payer MEDICARE, SELFPAY | PROVIDERS: PCP Family Medicine; Visit Provider Family Medicine | DX: E53.8 Deficiency of other specified B group vitamins (principal); E11.9 Type 2 diabetes mellitus without complications; Z13.220 Encounter for screening for lipoid disorders; Z51.81 Encounter for therapeutic drug level monitoring | CPT/HCPCS: 80053; 80061; 82607; 85025 ==

== ENCOUNTER → 2024-01-15 07:50 | Outpatient (BNVA) | payer MEDICARE, SELFPAY | PROVIDERS: PCP Family Medicine; Visit Provider Specialist | DX: G40.309 Generalized idiopathic epilepsy and epileptic syndromes, not intractable, without status epilepticus (principal); G47.10 Hypersomnia, unspecified; R03.0 Elevated blood-pressure reading, without diagnosis of hypertension | CPT/HCPCS: 99213 ==

== ENCOUNTER → 2024-12-21 08:47 | Outpatient (BNVA) | payer MEDICARE, SELFPAY | PROVIDERS: PCP Family Medicine; Visit Provider Family Medicine | DX: E55.9 Vitamin D deficiency, unspecified (principal); Z00.00 Encounter for general adult medical examination without abnormal findings; Z51.81 Encounter for therapeutic drug level monitoring; R53.81 Other malaise; R53.83 Other fatigue; Z13.1 Encounter for screening for diabetes mellitus; Z13.6 Encounter for screening for cardiovascular disorders; R32 Unspecified urinary incontinence; R35.0 Frequency of micturition; R30.0 Dysuria | CPT/HCPCS: 80053; 80061; 81000; 82306; 83036; 84153; 84439; 84443; 85025; 87086 ==

== ENCOUNTER → 2025-01-06 14:51 | Outpatient (BNVA) | payer MEDICARE, SELFPAY | PROVIDERS: PCP Family Medicine; Visit Provider Specialist | DX: G40.309 Generalized idiopathic epilepsy and epileptic syndromes, not intractable, without status epilepticus (principal); G47.10 Hypersomnia, unspecified; R03.0 Elevated blood-pressure reading, without diagnosis of hypertension | CPT/HCPCS: 99213 ==